=== PATIENT | male | born 2000 ===

== ENCOUNTER → 2020-08-05 06:33 | Outpatient (CLI) | payer OTHER ==
[~2020-08-05 06:33] MED LIST: AMOXICILLIN500 M1
== END | disposition home or self-care (01) ==
LOC: PPH VACUNA 06:33
DX: Z23 Encounter for immunization (principal)

== ENCOUNTER 2021-04-04 09:00 | Outpatient (CLI) | payer OTHER | END 2021-04-04 09:30 | disposition home or self-care (01) | LOC: PPH VACUNA 09:00 | PROVIDERS: ATTEND Emergency Medicine Pediatric Emergency Medicine | DX: Z23 Encounter for immunization (principal) ==